=== PATIENT | female | born 1990 | race Caucasian/White ===

== ENCOUNTER 2018-08-29 20:16 | Emergency (ER) | payer OTHER ==
[2018-08-29 20:46] VITALS: BP 130/78; PULSE 83; TEMP 97.7; BMI 28.1
--- NOTE | 2018-08-29 20:49 | PDOC ---
Rapid Medical Evaluation Time Seen by Provider: 08/29/18 20:44 Medical Evaluation: 08/29/18 20:44 I have performed a brief in-person evaluation of this patient The patient present with a chief complaint of: s/p fall. Patient complaining of pain in left lower leg. States missed a step while walking down the stairs. LMP 3 weeks ago. Pertinent physical exam findings: NAD even and unlabored breathing +tenderness to anterior thigh; left + tenderness to left knee I have ordered the following: knee xray The patient will proceed to the ED for further evaluation. Discharge Disposition - Diagnosis Knee injury - Referrals - Patient Instructions - Post Discharge Activity
--- NOTE | 2018-08-29 21:41 | PDOC ---
History of Present Illness - General Chief Complaint: Pain, Acute Stated Complaint: INJURY-[employer] Time Seen by Provider: 08/29/18 20:44 - History of Present Illness Initial Comments: 08/29/18 21:38 28-year-old female without comorbidities presents for evaluation of left knee pain. 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 She points to the anterior aspect of the left knee as the area of her discomfort. She was able to ambulate with help. Past History - Past Medical History Home Medications: Ambulatory Orders NK [No Known Home Medication] 08/29/18 - Suicide/Smoking/Psychosocial Hx Smoking History: Unknown if ever smoked Hx Alcohol Use: No Drug/Substance Use Hx: No Review of Systems - Review of Systems Musculoskeletal: Yes: Joint Pain *Physical Exam - Vital Signs Last Vital Signs Temp Pulse Resp BP Pulse Ox 97.7 F 83 20 130/78 97 08/29/18 20:44 08/29/18 20:44 08/29/18 20:44 08/29/18 20:44 08/29/18 20:44 - Physical Exam Comments: 08/29/18 21:38 Left knee skin color and temperature are normal. Extensor mechanism is intact. Range of motion 0-30 passively beyond that causes pain. She does not have an intra-articular effusion. She has tenderness about the lateral femoral condyle. She has no endpoint on Sameer's test stable to varus and valgus. Posterior lateral joint line tenderness. Thighs and calves are soft and nontender normal hip and ankle range of motion she is neurovascularly intact free of any gross sensorimotor deficits. Medical Decision Making - Medical Decision Making 08/29/18 21:39 Weight-bear as tolerated with the use of the knee immobilizer and crutches. Follow-up with orthopedic surgery *DC/Admit/Observation/Transfer Diagnosis at time of Disposition: Knee injury - Discharge Dispostion Disposition: HOME Condition at time of disposition: Stable Decision to Admit order: No - Referrals Referrals: Topher Campos DO [Staff Physician] - - Patient Instructions Printed Discharge Instructions: DI for Knee Sprain, Knee Sprain Additional Instructions: Weight-bear as tolerated with the knee immobilizer and crutches. Please follow- up with orthopedic surgery in 1-2 days for further evaluation and treatment options. Tylenol and Motrin as directed for pain. Return to the emergency room for worsening symptoms. - Post Discharge Activity Forms/Work/School Notes: Back to Work
== END 2018-08-29 22:12 | disposition home or self-care (01) ==
LOC: JERFT 20:16
DX: S89.82XA Other specified injuries of left lower leg, initial encounter (principal); W10.8XXA Fall (on) (from) other stairs and steps, initial encounter; Y93.89 Activity, other specified; Y92.89 Other specified places as the place of occurrence of the external cause; Y99.0 Civilian activity done for income or pay
CPT/HCPCS: 73552-TC-LT-FY; 73562-TC-LT-FY; 99281-25

== ENCOUNTER 2018-10-14 06:25 | Day surgery (SDC) | payer OTHER ==
[2018-10-07 12:21] VITALS: BMI 26.1
[2018-10-14] MEDS ORDERED: BUPIVACAINE HCL/EPINEPHRINE/PF 30 ML VIAL IJ ONE (07:08)
[2018-10-14] MEDS ORDERED: ONDANSETRON 4 MG/2 ML VIAL ONE ×2 (07:52→09:12)
[2018-10-14] MEDS ORDERED: MIDAZOLAM HCL 2 MG/2 ML SINGLE DOSE VIAL ONE (07:52)
[2018-10-14] MEDS ORDERED: DEXAMETHASONE SOD PHOSPHATE 4 MG/1 ML VIAL ONE ×2 (07:52→09:12)
[2018-10-14] MEDS ORDERED: SUCCINYLCHOLINE CHLORIDE 200 MG/10 ML VIAL ONE (08:40)
[2018-10-14] MEDS ORDERED: PROPOFOL 20 ML ONE ×3 (08:40→09:03)
[2018-10-14] MEDS ORDERED: ceFAZolin SODIUM 1 GM VIAL ONE (08:45)
--- NOTE | 2018-10-14 09:39 | DS ---
Physical Examination Vital Signs: Vital Signs Temperature 97.6 F 10/14/18 07:06 Pulse Rate 83 10/14/18 07:06 Respiratory Rate 18 10/14/18 07:06 Blood Pressure 114/75 10/14/18 07:06 O2 Sat by Pulse Oximetry (%) 97 10/14/18 07:06 Discharge Summary Reason For Visit: MEDIAL MENISCAL TEAR LEFT KNEE Condition: Good - Instructions Diet, Activity, Other Instructions: Post Operative Instructions: Knee Arthroscopy Dr Isaac Kim 1. Pain following an arthroscopy is variable. Some patients will have more pain than others. You have been provided with a prescription for medication that contains a narcotic. You are not allowed to drive while on this medication. You should NOT take Tylenol (Acetaminophen) when taking the pain medication ( it will result in an overdose). Feel free to take medications such as Ibuprofen or Naprosyn in addition to the pain medicine if you do not have any problems with the NSAID class of medications. 2. You should remove the bandages and shower in 24 hours unless directed otherwise. You are not allowed to bathe or go swimming until the sutures are removed. Put band-aids on the sutures after your shower and do not put any creams or lotions over the incisions. 3. You are allowed to put all your weight on the leg and bend your knee 4. Apply ice to the knee for 15 min every hour or so. You may continue this for as many days as you like. 5. Please call the office to schedule a visit to have your sutures removed. 6. If for any reason you believe you may have an infection or are concerned, please feel free to call me. I can be reached through our office number 24 hours a day. 7. Please call our office with any questions; we will review the surgical findings during your post operative visit. Disposition: HOME - Home Medications Comprehensive Discharge Medication List: Ambulatory Orders NK [No Known Home Medication] 08/29/18
--- NOTE | 2018-10-14 09:39 | OP ---
Operative Note - Note: Operative Date: 10/14/18 Pre-Operative Diagnosis: left knee MMT Operation: LKA, MMR Post-Operative Diagnosis: Same as Pre-op Surgeon: Isaac Kim Anesthesiologist/LOG CHIPPER OPERATOR: Larry Nguyen Anesthesia: Local Operative Report Dictated: Yes
[2018-10-14] MEDS ORDERED: ACETAMINOPHEN 325 MG TABLET (FP) PO PRN (09:40)
[2018-10-14] MEDS ORDERED: oxyCODONE HCL 5 MG TABLET PO PRN ×2 (09:40)
[2018-10-14] MEDS ORDERED: ONDANSETRON 4 MG/2 ML VIAL IVPUSH PRN (09:40)
[2018-10-14] MEDS ORDERED: ACETAMINOPHEN 325 MG TABLET (FP) ONE (09:41)
[2018-10-14] MEDS ORDERED: oxyCODONE HCL 5 MG TABLET ONE (09:41)
[2018-10-14] MEDS ORDERED: ACETAMINOPHEN 325 MG TABLET (FP) PO ONE (09:45)
[2018-10-14] MEDS ORDERED: oxyCODONE HCL 5 MG TABLET PO ONE (09:45)
[2018-10-14] MEDS ORDERED: LACTATED RINGERS SOLUTION 1,000 ML IV SCH (09:45)
[2018-10-14 11:33] VITALS: PULSE 70
[2018-10-14 12:08] VITALS: BP 101/60; TEMP 97.8
== END 2018-10-14 12:00 | disposition home or self-care (01) ==
LOC: FASU 06:25
PROVIDERS: ATTEND Orthopaedic Surgery
PROC: 0SBD4ZZ Excision of Left Knee Joint, Percutaneous Endoscopic Approach (ICD-10-PCS; principal; 2018-10-14 08:54)
DX: S83.242A Other tear of medial meniscus, current injury, left knee, initial encounter (principal); X58.XXXA Exposure to other specified factors, initial encounter; Y93.9 Activity, unspecified; Y92.9 Unspecified place or not applicable
CPT/HCPCS: 84703

== ENCOUNTER 2019-05-29 16:47 | Emergency (ER) | payer OTHER ==
[2019-05-29] MEDS ORDERED: ACETAMINOPHEN 500 MG TABLET (FP) PO ONE (16:55)
[2019-05-29] MEDS ORDERED: DIPHTH,PERTUSS(ACELL),TET 0.5 ML DISP.SYRIN IM ONE ×2 (16:55→17:36)
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
[2019-05-29 16:56] VITALS: BP 128/60; PULSE 68; TEMP 97.4; BMI 25.8
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
== END 2019-05-29 17:59 | disposition home or self-care (01) ==
LOC: JERFT 16:47
DX: S60.512A Abrasion of left hand, initial encounter (principal); Y35.811A Legal intervention involving manhandling, law enforcement official injured, initial encounter; Y93.89 Activity, other specified; Y92.89 Other specified places as the place of occurrence of the external cause; Y99.0 Civilian activity done for income or pay
CPT/HCPCS: 73130-TC-LT-FY; 90715; 99281-25

== ENCOUNTER 2021-02-14 21:20 | Emergency (ER) | payer OTHER ==
[2021-02-14 21:29] VITALS: BMI 26.6
[2021-02-14 21:45] VITALS: BP 109/71; PULSE 59; TEMP 99.1
[2021-02-14] MEDS ORDERED: IBUPROFEN 600 MG TABLET (FP) PO ONE ×2 (22:06→22:12)
[2021-02-14] MEDS ORDERED: ACETAMINOPHEN 500 MG TABLET (FP) PO ONE (22:06)
[2021-02-14] MEDS ORDERED: ACETAMINOPHEN 325 MG TABLET (FP) ONE (22:12)
== END 2021-02-14 22:15 | disposition home or self-care (01) ==
LOC: FER 21:20
DX: S13.4XXA Sprain of ligaments of cervical spine, initial encounter (principal); M54.5 Low back pain; V49.40XA Driver injured in collision with unspecified motor vehicles in traffic accident, initial encounter
CPT/HCPCS: 99283-25

== ENCOUNTER 2021-07-14 13:05 | Emergency (ER) | payer OTHER ==
[2021-07-14 13:16] VITALS: BP 119/60; PULSE 73; TEMP 98.5; BMI 24.6
[2021-07-14] MEDS ORDERED: ACETAMINOPHEN 325 MG TABLET (FP) PO ONE (13:33)
[2021-07-14] MEDS ORDERED: ACETAMINOPHEN 325 MG TABLET (FP) ONE (13:45)
== END 2021-07-14 14:10 | disposition home or self-care (01) ==
LOC: FER 13:05
DX: S40.912A Unspecified superficial injury of left shoulder, initial encounter (principal); X50.0XXA Overexertion from strenuous movement or load, initial encounter
CPT/HCPCS: 73030-TC-LT-FY; 99283-25

== ENCOUNTER 2022-12-22 00:20 | Emergency (ER) | payer OTHER ==
[2022-12-22 00:26] VITALS: BP 111/82; PULSE 88; RESP 16; TEMP 98.1; BMI 25.8
[2022-12-22 08:59] LABS: HIV INTERPRETATION NEGATIVE (NEGATIVE)
== END 2022-12-22 00:44 | disposition home or self-care (01) ==
LOC: FER 00:20
DX: S61.239A Puncture wound without foreign body of unspecified finger without damage to nail, initial encounter (principal); W46.1XXA Contact with contaminated hypodermic needle, initial encounter
CPT/HCPCS: 36415; 87389; 99283-25

== ENCOUNTER 2023-06-21 21:35 | Emergency (ER) | payer OTHER ==
[2023-06-21 21:56] VITALS: BP 114/76; PULSE 85; RESP 16; TEMP 98.5; BMI 25.5
== END 2023-06-21 23:14 | disposition home or self-care (01) ==
LOC: FER 21:35
DX: M25.511 Pain in right shoulder (principal); S49.91XA Unspecified injury of right shoulder and upper arm, initial encounter; Y04.0XXA Assault by unarmed brawl or fight, initial encounter
CPT/HCPCS: 73030-TC-RT-FY; 99283-25